=== PATIENT | male | born 1975 | race Caucasian/White ===

== ENCOUNTER 2017-01-11 15:31 | Outpatient (CLI) | payer OTHER ==
--- NOTE | 2017-01-11 17:12 | DIAGNOSTIC IMAGING REPORT ---
PROCEDURE: CT ABDOMEN W/WO CONTRAST INDICATION: TYPE 1 DIABETES MELLITUS TECHNIQUE: Axial scans before and after 125 ml Isovue 300 IV. Coronal and sagittal re-formations. COMPARISON: None. FINDINGS: Pancreas is normal in size without evidence of a mass or inflammatory changes. Liver, gallbladder, spleen, adrenal glands and kidneys are normal. Normal abdominal aorta. No retroperitoneal adenopathy. Moderate stool with nonspecific bowel gas pattern. Normal appendix. No free fluid. L5-S1 disc spacer. Bones are unremarkable. Right lower quadrant abdominal wall electronic device. Lung base are clear. Heart size is normal. IMPRESSION: 1. Normal pancreas and abdomen.
== END 2017-01-11 23:00 ==
LOC: CT SRH 15:31
DX: E10.65 Type 1 diabetes mellitus with hyperglycemia (principal)